=== PATIENT | female | born 1975 | race Caucasian/White ===

== ENCOUNTER 2017-04-09 13:15 | Emergency (ER) | payer BC ==
[~2017-04-09] VITALS: Ht 170.2 cm; Wt 63.5 kg
[2017-04-09 13:19] VITALS: BP_SYST 120
--- NOTE | 2017-04-09 13:24 | NUR ---
Pt placed to ER waiting room in stable condition.
--- NOTE | 2017-04-09 15:00 | NUR ---
Patient see by Aida SHINGLE INSPECTOR, orders received and implemented
[2017-04-09] MEDS ORDERED: DEXAMETHASONE SOD PHOSPHATE 10 MG/ML VIAL IM ONE (15:15)
--- NOTE | 2017-04-09 15:15 | NUR ---
Patient with c/o rash to head, itching earlier-now no itching, no drainage noted from skin/ears. No other complaints, patient able to ambulate without difficulty, no c/o pain/sob upon exertion.
[2017-04-09 15:44] VITALS: BP_SYST 120
--- NOTE | 2017-04-09 15:48 | NUR ---
Patient given written and verbal discharge instructions and verbalizes understanding. ER MD discussed with patient the results and treatment provided. Patient in stable condition. ID arm band removed. Rx of Medrol dose pack given. Patient educated on pain management and to follow up with PMD. Pain Scale 0. Opportunity for questions provided and answered.
== END 2017-04-09 15:48 | disposition home or self-care (01) ==
LOC: SED 13:15
DX: L25.9 Unspecified contact dermatitis, unspecified cause (principal); Z98.890 Other specified postprocedural states
CPT/HCPCS: 81025; 96372; 99283; J1100